=== PATIENT | male | born 1940 | race Caucasian/White ===

== ENCOUNTER → 2016-10-24 | Outpatient (CLI) | payer MEDICARE ==
[~2016-10-24] MED LIST: ASPI-875 PO; CARV12.5 PO; CLOP75TA28 PO; OMEG1CAP51 PO; PIOG30TA25 PO; SIMV40TA2 PO; SIMV80TA3 PO
--- NOTE | 2016-10-24 20:13 | Diagnostic Imaging Report ---
INDICATION: Peripheral vascular disease. FINDINGS: Bilateral ankle-brachial indices are normal. On the right side, the ankle-brachial index in the proximal thigh is 1.17, in the distal thigh is 1.21, in the proximal calf 1.19, and in the distal calf 1.16. On the left side, the ankle-brachial index in the proximal thigh is 1.18, in the distal thigh is 1.28. Proximal calf is 1.07 and the distal calf is 1.02. IMPRESSION: There are normal ankle-brachial indices bilaterally. Dictated by: Dictated on workstation # [id number]
--- NOTE | 2016-10-26 09:00 | ECHOCARDIOGRAPHY REPORT ---
PROCEDURE PHYSICIAN: ZHEN JONES DATE OF PROCEDURE: 10/24/2016 TWO DIMENSIONAL ECHOCARDIOGRAM REPORT PRIMARY PHYSICIAN: Dr. Vargas OTHER PHYSICIAN: Dr. Jones REFERRING PHYSICIAN: ORDERING PHYSICIAN: Nidhi Powell APRN INDICATION FOR THE PROCEDURE: 1. Coronary artery disease. 2. Carotid arterial disease. 3. Diabetes. MEASUREMENTS DERIVED VALUES LV DIAMETER (LAX) NORMALS NORMALS Diastolic 5.5 (3.6-5.2) Eject. Fract. (60%+/-6%) Systolic (2.3-3.9) Diastolic Vol. % Shortening (0.22-0.42) Systolic Vol. Aortic Root 3.5 IVS THICKNESS Diastolic 0.9 (0.6-1.1) LVPW THICKNESS Diastolic 1.1 (0.6-1.1) LA DIAMETER Systolic 3.6 (2.1-3.7) DESCRIPTION: Two-dimensional echocardiography shows normal global left ventricular systolic function with normal regional wall motion. Aortic, mitral and tricuspid valve leaflets show good leaflet excursion. There is no significant pericardial effusion. There is mild aortic valve sclerosis. Aortic valve is trileaflet. Doppler imaging does not indicate any significant valvular regurgitation or stenosis. Inferior vena cava appears mildly dilated but does exhibit inspiratory collapse. CONCLUSIONS: 1. Normal global left ventricular systolic function with an ejection fraction of approximately 60%. 2. Mild aortic valve sclerosis without evidence of valvular stenosis. 3. No evidence of significant valvular regurgitation. 4. Pulmonary artery systolic pressure is estimated to be within normal limits. 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
== END ==
LOC: RAD 13:25
PROVIDERS: ATTEND Nurse Practitioner Family
DX: I25.10 Atherosclerotic heart disease of native coronary artery without angina pectoris (principal); I65.23 Occlusion and stenosis of bilateral carotid arteries; E78.4 Other hyperlipidemia; E11.9 Type 2 diabetes mellitus without complications
CPT/HCPCS: 93306; 93923

== ENCOUNTER 2018-07-06 10:01 | Emergency (ER) | payer MEDICARE ==
[~2018-07-06] VITALS: Ht 177.8 cm; Wt 77.1 kg
--- OUTSIDE RECORDS SUMMARY | 2018-07-06 10:05 | XMS REPORT ---
Author Author CASSANDRA PHOENIX [facility] Address Unknown Care Team Providers Care Hand Alterations Seamstress Name Role Phone CASSANDRA PHOENIX Unavailable PROBLEMS Unknown Problems ALLERGIES No Known Allergies ENCOUNTERS Encounter Location Date Diagnosis [facility] [id number], [place] [id number] Jan, Dental examination Z01.20 [facility] [id number], [place] [id number] Oct, Dental examination Z01.20 IMMUNIZATIONS No Known Immunizations SOCIAL HISTORY Never Assessed REASON FOR VISIT FILLING PLAN OF CARE Activity Details Follow Up prn Reason:fillings VITAL SIGNS Blood pressure systolic 145 mmHg 2017-02-10 Blood pressure diastolic 84 mmHg 2017-02-10 MEDICATIONS Medication Instructions Dosage Frequency Start Date End Date Duration Status Fish Oil Active Fish Oil Active Carvedilol Active Ocuvite Active Pioglitazone HCl Active Enalapril Maleate Active Simvastatin Active Aspir-Low Active Clopidogrel Bisulfate Active RESULTS No Results PROCEDURES Procedure Date Ordered Result Body Site RESIN COMPOS - 3 SURFACES ANTERIOR February 10, 2017 INSTRUCTIONS MEDICATIONS ADMINISTERED No Known Medications MEDICAL (GENERAL) HISTORY Type Description Date Medical History Low blood pressure Medical History Heart attack 2006 Medical History Diabetes II Medical History Blood thinners Medical History arthritis Surgical History hernia x 3
--- OUTSIDE RECORDS SUMMARY | 2018-07-06 10:05 | XMS REPORT | Continuity of Care Document ---
Author Author [facility] Organization [facility] Address Unknown Phone Unavailable Allergies Active Description Code Type Severity Reaction Onset Reported/Identified Relationship to Patient Clinical Status Yes No Known Drug Allergies [id number] Drug Allergy Unknown N/A 05/23/2013 Medications There is no data. Problems Date Dx Coded Attending Type Code Diagnosis Diagnosed By 01/24/2014 STALIN JIMENEZ MD Ot 250.00 DIAB GALO WO COMPL, TYPE II OR UNSPEC TY 01/24/2014 STALIN JIMENEZ MD R Ot 300.00 ANXIETY STATE NOS 01/24/2014 STALIN JIMENEZ MD R Ot 338.29 OTHER CHRONIC PAIN 01/24/2014 STALIN JIMENEZ MD R Ot 401.9 HYPERTENSION NOS 01/24/2014 STALIN JIMENEZ MD R Ot 716.90 ARTHROPATHY NOS-UNSPEC 01/24/2014 STALIN JIMENEZ MD R Ot 724.5 BACKACHE NOS 01/24/2014 STALIN JIMENEZ MD R Ot 780.4 DIZZINESS AND GIDDINESS 01/24/2014 STALIN JIMENEZ MD R Ot 780.79 OTH MALAISE FATIGUE 01/24/2014 STALIN JIMENEZ MD R Ot 784.59 OTHER SPEECH DISTURBANCE 01/24/2014 STALIN JIMENEZ MD Ot 969.4 POIS-BENZODIAZEPINE ALCAZAR 01/24/2014 STALIN JIMENEZ MD R Ot E853.2 ACC POISN-BENZDIAZ TRANQ 01/24/2014 STALIN JIMENEZ MD Ot V03.82 PROPHYLACTIC VACC AGAINST STREPTOCOCCUS 10/24/2016 EFRAIN HODGE VISUAL BASIC DEVELOPER Ot 414.01 CORONARY ATHEROSCLEROSIS OF [place] CORON 10/24/2016 EFRAIN HODGEP Ot V45.81 AORTOCORONARY BYPASS 10/24/2016 EFRAIN HODGE VISUAL BASIC DEVELOPER Ot 414.00 CORON ATHEROSCLER NOS TYPE VESSEL, NATIV 10/24/2016 EFRAIN HODGE VISUAL BASIC DEVELOPER Ot V45.81 AORTOCORONARY BYPASS 10/25/2016 AYESHA, EFRAIN L VISUAL BASIC DEVELOPER Ot I25.10 ATHSCL HEART DISEASE OF [place] CORONARY 10/25/2016 BAIMA, EFRAIN L VISUAL BASIC DEVELOPER Ot E11.9 TYPE 2 DIABETES MELLITUS WITHOUT COMPLIC 10/25/2016 BAIMA, EFRAIN L VISUAL BASIC DEVELOPER Ot E78.4 OTHER HYPERLIPIDEMIA 10/25/2016 BAIMA, EFRAIN L VISUAL BASIC DEVELOPER Ot I25.10 ATHSCL HEART DISEASE OF [place] CORONARY 10/25/2016 BAIMA, EFRAIN L VISUAL BASIC DEVELOPER Ot I65.23 OCCLUSION AND STENOSIS OF [place] 11/15/2016 BAIMA, EFRAIN L VISUAL BASIC DEVELOPER Ot E11.9 TYPE 2 DIABETES MELLITUS WITHOUT COMPLIC 11/15/2016 BAIMA, EFRAIN L VISUAL BASIC DEVELOPER Ot E78.4 OTHER HYPERLIPIDEMIA 11/15/2016 BAIMA, EFRAIN L VISUAL BASIC DEVELOPER Ot I25.10 ATHSCL HEART DISEASE OF [place] CORONARY 11/15/2016 BAIMA, EFRAIN L VISUAL BASIC DEVELOPER Ot I65.23 OCCLUSION AND STENOSIS OF [place] Procedures There is no data. Results There is no data. Encounters ACCT No. Visit Date/Time Discharge Status Pt. Type Provider Facility Loc./Unit Complaint [id number] 10/24/2016 13:25:00 10/24/2016 23:59:59 CLS Outpatient BAIMA, EFRAIN L VISUAL BASIC DEVELOPER [facility] RAD CAD,CAROTID ARTERIAL DISEASE,HYPERLIPIDEMIA [id number] 01/23/2014 21:10:00 01/24/2014 12:15:00 DIS Inpatient BARBARA YANG, STALIN Samuels [facility] ICU TIA, POSSIBLE POSTERIOR CIRCULATION TIA [id number] 05/23/2013 07:52:00 05/23/2013 23:59:59 CLS Outpatient BAIMA, EFRAIN L VISUAL BASIC DEVELOPER [facility] RAD CAD,STATUS POST CABG [id number] 05/22/2013 13:10:00 05/22/2013 23:59:59 CLS Outpatient BAIMA, EFRAIN L VISUAL BASIC DEVELOPER [facility] CARD CAD, STATUS POST CABG [id number] 07/06/2018 10:02:00 ACT Emergency SAE YANG, JAMESON Chavez [facility] ER LEFT LEG NUMB
[2018-07-06] MEDS ORDERED: NS IV 1000 ML 1,000 ML IV ONE (12:50)
--- NOTE | 2018-07-06 13:07 | ED Neurological Problem ---
General Chief Complaint: Lower Extremity Stated Complaint: LEFT LEG NUMB Nursing Triage Note: pt is ambulatory to the room without difficulty. no distress is seen on arrival. loc is [facility] for the pt. the pt is c/o his left lower leg numbness. and his right hand is also numb. Nursing Sepsis Screen: No Definite Risk Source: patient, family (daughter) Exam Limitations: no limitations History of Present Illness Date Seen by Provider: Jul 06, 2018 Time Seen by Provider: 12:55 Initial Comments 77 yo male patient presents to the ED with c/o LLE and rt hand numbness/ tingling. LLE symptoms started 1 wk ago and rt hand started yesterday. Patient does report a similar history, but states symptoms usually last for several minutes and resolved. He reports it feels like the right hand, left calf, and left foot are asleep. Patient denies any falls, trauma, headache, dizziness, slurred speech, changes in vision, shortness of air, chest pain, neck pain, or back pain. Reports blood sugars range between 120-140's. He was recently started on metformin 500 mg once daily. Per patient's EMR, patient had a history of TIAs. Daughter states this was found to not be related to TIAs , but was actually a medication error at the pharmacy. Daughter states patient was accidentally given a high-dose narcotic instead of the medication he was supposed to be on (per daughter patient was opioid nohemy which resulted in him being confused with slurred speech and disoriented). Patient reports having his carotids checked at the [facility] approximately one week ago. Timing/Duration: constant Severity: mild Associated Symptoms: No confusion, No fatigue, No fever/chills, No insomnia, No loss of consciousness, No muscle spasms, No nausea/vomiting; numbness in legs /feet (Left calf and left lateral foot); No ringing in ears, No seizures, No sleepy, No slurred speech; tingling in legs/feet (Left calf and left lateral foot); No trouble walking, No vision changes, No weakness Allergies and Home Medications Allergies Coded Allergies: No Known Drug Allergies (Unverified , 05/23/13) Home Medications Aspirin 81 Mg Tablet., 81 MG PO DAILY, (Reported) Carvedilol 12.5 Mg Tablet, 12.5 MG PO BID, (Reported) Clopidogrel Bisulfate 75 Mg Tablet, 75 MG PO EVERY OTHER DAY, (Reported) Thorndike-3 Fatty Acids/Fish Oil 1 Each Capsule, 1,000 MG PO DAILY @ 1200, (Reported ) Pioglitazone Hcl 30 Mg Tablet, 30 MG PO DAILY, (Reported) Simvastatin 80 Mg Tablet, 80 MG PO HS, (Reported) Patient Home Medication List Home Medication List Reviewed: Yes Review of Systems Review of Systems Constitutional: No chills, No diaphoresis, No dizziness, No fever, No malaise, No weakness Eyes: Denies Blindness, Denies Blurred Vision, Denies Decreased Acuity, Denies Pain, Denies Photophobia, Denies Vision Changes; Glasses Ears, Nose, Mouth, Throat: no symptoms reported Respiratory: No cough, No dyspnea on exertion, No orthopnea, No phlegm, No short of breath Cardiovascular: No chest pain, No edema, No palpitations, No syncope Gastrointestinal: No abdominal pain, No constipation, No diarrhea, No nausea, No vomiting Genitourinary: no symptoms reported Musculoskeletal: No back pain; joint pain (chronic bilateral knee pain); No neck pain Skin: No change in color, No lesions, No rash Psychiatric/Neurological: See HPI; Denies Cognitive Dysfunction, Denies Headache; Numbness; Denies Petit Mal Seizures; Tingling; Denies Tonic Clonic Seizures, Denies Unable to Move Lower Ext, Denies Unable to Move Upper Ext, Denies Weakness Endocrine: No Symptoms Reported All Other Systems Reviewed Negative Unless Noted: Yes (Negative excepted noted.) Past Xaquyfn-Axaysg-Xcavqo Hx Past Med/Social Hx: Reviewed and Corrections made Patient Social History Alcohol Use: Denies Use Recreational Drug Use: No Smoking Status: Former Smoker 2nd Hand Smoke Exposure: No Recent Foreign Travel: No Contact w/Someone Who Travel: No Recent Infectious Disease Expo: No Recent Hopitalizations: No Physical Abuse: No Sexual Abuse: No Mistreated: No Fear: No Immunizations Up To Date Tetanus Booster (TDap): Less than 5yrs Past Medical History Surgeries: Yes CABG Respiratory: No Cardiac: Yes Coronary Artery Disease, High Cholesterol, Hypertension Neurological: No Reproductive Disorders: No Sexually Transmitted Disease: No HIV/AIDS: No Genitourinary: No Gastrointestinal: No Musculoskeletal: Yes (chronic bilateral knee pain) Arthritis, Chronic Back Pain Diabetes, Non-Insulin dep (type II) Cataract Loss of Vision: Denies Hearing Impairment: Denies Cancer: Yes Skin Psychosocial: No Psoriasis Adverse Reaction/Blood Tranf: No Family Medical History Reviewed Nursing Family Hx Cataract 19 FATHER, Onset:Unknown Family history: Thyroid disorder 19 MOTHER, Onset:Unknown No Pertinent Family Hx Physical Exam Vital Signs Vital Signs - First Documented 07/06/18 10:29 Temp 98.2 Pulse 86 Resp 18 B/P (MAP) 117/73 (88) Pulse Ox 97 Capillary Refill : Less Than 3 Seconds Height, Weight, BMI Height: 5'10.00" Weight: 170lbs. 1.0oz. [id number]; BMI Method:Estimated General Appearance: WD/WN, no apparent distress HEENT: PERRL/EOMI, normal ENT inspection, TMs normal, pharynx normal Neck: non-tender, full range of motion, supple, normal inspection; No carotid bruit Respiratory: lungs clear, normal breath sounds, no respiratory distress, no accessory muscle use Cardiovascular: normal peripheral pulses, regular rate, rhythm, no edema, no gallop, no JVD, no murmur Peripheral Pulses: 2+ Dorsalis Pedis (R), 2+ Left Dors-Pedis (L), 2+ Radial Pulses (R), 2+ Radial Pulses (L) Gastrointestinal: normal bowel sounds, non tender, soft, no organomegaly, no pulsatile mass Back: normal inspection, no vertebral tenderness; No decreased range of motion , No muscle spasm Extremities: normal range of motion, non-tender, normal inspection, no pedal edema, no calf tenderness, normal capillary refill Neurologic/Psychiatric: charging car operator II-XII nml as tested, no motor/sensory deficits, alert, normal mood/affect, oriented x 3 Crainal Nerves: normal hearing, normal speech, PERRL Coordination/Gait: normal finger to nose, normal gait, negative Romberg's sign Motor/Sensory: no motor deficit, no sensory deficit, no pronator drift Skin: normal color, warm/dry Stroke Stroke Thrombolytic Exclusion Age 18 or Over: Yes History of CVA: No Severe Hypertension: No GI or Bleed: No Subarachnoid Hemorrhage: No Intracranial Neoplasm/Aneurysm: No Puncture of Non-Compressible V: No Recent CPR: No Diabetic Hemorrhagic Retinopat: No Organ Biopsy: No Recent Obstetric Delivery: No Significant Hepatic Dysfunctio: No NIH Stoke Scale >22: No Improving Symptoms: No Progress/Results/Core Measures Results/Orders Lab Results Laboratory Tests Test 07/06/18 13:00 Range/Units White Blood Count 9.3 4.3-11.0 10^3/uL Red Blood Count 3.92 L 4.35-5.85 10^6/uL Hemoglobin 11.3 L 13.3-17.7 G/DL Hematocrit 34 L 40-54 % Mean Corpuscular Volume 87 80-99 FL Mean Corpuscular Hemoglobin 29 25-34 PG Mean Corpuscular Hemoglobin Concent 33 32-36 G/DL Red Cell Distribution Width 14.1 10.0-14.5 % Platelet Count 173 130-400 10^3/uL Mean Platelet Volume 9.4 7.4-10.4 FL Neutrophils (%) (Auto) 74 42-75 % Lymphocytes (%) (Auto) 9 L 12-44 % Monocytes (%) (Auto) 17 H 0-12 % Eosinophils (%) (Auto) 0 0-10 % Basophils (%) (Auto) 0 0-10 % Neutrophils # (Auto) 6.9 1.8-7.8 X 10^3 Lymphocytes # (Auto) 0.9 L 1.0-4.0 X 10^3 Monocytes # (Auto) 1.5 H 0.0-1.0 X 10^3 Eosinophils # (Auto) 0.0 0.0-0.3 10^3/uL Basophils # (Auto) 0.0 0.0-0.1 10^3/uL Sodium Level 134 L 135-145 MMOL/L Potassium Level 3.6 3.6-5.0 MMOL/L Chloride Level 104 98-107 MMOL/L Carbon Dioxide Level 22 21-32 MMOL/L Anion Gap 8 5-14 MMOL/L Blood Urea Nitrogen 24 H 7-18 MG/DL Creatinine 0.74 0.60-1.30 MG/DL Estimat Glomerular Filtration Rate > 60 BUN/Creatinine Ratio 32 Glucose Level 160 H 70-105 MG/DL Calcium Level 8.9 8.5-10.1 MG/DL Corrected Calcium 9.3 8.5-10.1 MG/DL Total Bilirubin 0.5 0.1-1.0 MG/DL Aspartate Amino Transf (AST/SGOT) 16 5-34 U/L Alanine Aminotransferase (ALT/SGPT) 13 0-55 U/L Alkaline Phosphatase 91 40-136 U/L Total Protein 6.6 6.4-8.2 GM/DL Albumin 3.5 3.2-4.5 GM/DL My Orders Orders - CHAI PINTO Ct Head Wo (07/06/18 12:43) Cbc With Automated Diff (07/06/18 12:43) Comprehensive Metabolic Panel (07/06/18 12:43) Saline Lock/Iv-Start (07/06/18 12:43) Ns Iv 1000 Ml (Sodium Chloride 0.9%) (07/06/18 12:50) Medications Given in ED Vital Signs/I&O 07/06/18 07/06/18 10:29 13:50 Temp 98.2 98.6 Pulse 86 77 Resp 18 16 B/P (MAP) 117/73 (88) 120/75 (90) Pulse Ox 97 97 Blood Pressure Mean: 88 Diagnostic Imaging Diagonstic Imaging: CT Plain Films/CT/US/NM/MRI: head Comments CT HEAD WO PROCEDURE: CT head without contrast. TECHNIQUE: Multiple contiguous axial images were obtained through the brain without the use of intravenous contrast. INDICATION: Left leg numbness and right hand numbness. Comparison is made with prior head CT from 01/23/2014. The ventricles and sulci are within normal limits. No sulcal effacement, midline shift or hemorrhage is detected. The cisterns are patent. The visualized paranasal sinuses are clear. IMPRESSION : No acute intracranial process is detected. Dictated by: Dictated on workstation # [id number] Reviewed: Reviewed by Me (radiology report reviewed by me) Departure Communication (Admissions) Laboratory and diagnostic findings discussed with the patient and family. Plan for discharge to home with follow-up as an outpatient Monday and Dr. Vargas's office. He is to return immediately to the emergency department for worsened symptoms or any other concerns. Impression Primary Impression: Paresthesia of left lower extremity Additional Impressions: Paresthesias in right hand Diabetes mellitus type 2, uncontrolled Qualified Codes: E11.65 - Type 2 diabetes mellitus with hyperglycemia Disposition: HOME, SELF-CARE Condition: Improved Departure-Patient Inst. Decision time for Depature: 13:43 Referrals: STALIN VARGAS MD (PCP/Family) Primary Care Physician Patient Instructions: Diabetes Type 2 (DC), Diabetic Neuropathy (DC), Paresthesias (DC) Add. Discharge Instructions: All discharge instructions reviewed with patient and/or family. Voiced understanding. Continue usual home medications. Continue your usual diet as instructed by Dr. Vargas. Follow-up with Dr. Vargas Monday for recheck and possible need for further evaluation. He may order radiographs, CT scans, or an MRI to further evaluate your symptoms. Return immediately to the emergency department for worsened numbness/tingling, headache, dizziness, changes in vision, slurred speech, neck pain, back pain, shortness of air, chest pain, bowel incontinence, bladder incontinence, or any other concerns. CHAI PINTO Jul 06, 2018 13:07
[2018-07-06 13:10] LABS: BASOPHILS % (AUTO) 0 % (0-10); EOSINOPHILS % (AUTO) 0 % (0-10); HEMATOCRIT 34 % (40-54); HEMOGLOBIN 11.3 G/DL (13.3-17.7); LYMPHOCYTES # (AUTO) 0.9 X 10^3 (1.0-4.0); LYMPHOCYTES % (AUTO) 9 % (12-44); MEAN CORPUSCULAR HEMOGLOBIN 29 PG (25-34); MEAN CORPUSCULAR HGB CONC 33 G/DL (32-36); MEAN CORPUSCULAR VOLUME 87 FL (80-99); MEAN PLATELET VOLUME 9.4 FL (7.4-10.4); MONOCYTES # (AUTO) 1.5 X 10^3 (0.0-1.0); MONOCYTES % (AUTO) 17 % (0-12); NEUTROPHILS # (AUTO) 6.9 X 10^3 (1.8-7.8); NEUTROPHILS % (AUTO) 74 % (42-75); PLATELET COUNT 173 10^3/uL (130-400); RED BLOOD COUNT 3.92 10^6/uL (4.35-5.85); RED CELL DISTRIBUTION WIDTH 14.1 % (10.0-14.5); WHITE BLOOD COUNT 9.3 10^3/uL (4.3-11.0)
--- NOTE | 2018-07-06 13:36 | Diagnostic Imaging Report ---
PROCEDURE: CT head without contrast. TECHNIQUE: Multiple contiguous axial images were obtained through the brain without the use of intravenous contrast. INDICATION: Left leg numbness and right hand numbness. Comparison is made with prior head CT from 01/23/2014. The ventricles and sulci are within normal limits. No sulcal effacement, midline shift or hemorrhage is detected. The cisterns are patent. The visualized paranasal sinuses are clear. IMPRESSION: No acute intracranial process is detected. Dictated by: Dictated on workstation # [id number]
[2018-07-06 13:39] LABS: ALANINE AMINOTRANSFERASE 13 U/L (0-55); ALBUMIN 3.5 GM/DL (3.2-4.5); ALKALINE PHOSPHATASE 91 U/L (40-136); BILIRUBIN,TOTAL 0.5 MG/DL (0.1-1.0); BUN/CREATININE RATIO 32; CALCIUM 8.9 MG/DL (8.5-10.1); CARBON DIOXIDE 22 MMOL/L (21-32); CHLORIDE 104 MMOL/L (98-107); CREATININE SERUM 0.74 MG/DL (0.60-1.30); GFR ESTIMATED > 60; GLUCOSE 160 MG/DL (70-105); POTASSIUM 3.6 MMOL/L (3.6-5.0); SODIUM 134 MMOL/L (135-145); TOTAL PROTEIN 6.6 GM/DL (6.4-8.2)
[2018-07-06 13:50] VITALS: BP 120/75
== END 2018-07-06 14:01 | disposition home or self-care (01) ==
LOC: EDUNIT# 10:01 → ER 10:02
DX: R20.2 Paresthesia of skin (principal); E11.9 Type 2 diabetes mellitus without complications; I25.10 Atherosclerotic heart disease of native coronary artery without angina pectoris; E78.00 Pure hypercholesterolemia, unspecified; I10 Essential (primary) hypertension; Z85.828 Personal history of other malignant neoplasm of skin; Z79.82 Long term (current) use of aspirin; Z79.02 Long term (current) use of antithrombotics/antiplatelets; Z79.84 Long term (current) use of oral hypoglycemic drugs; Z86.73 Personal history of transient ischemic attack (TIA), and cerebral infarction without residual deficits; Z87.891 Personal history of nicotine dependence; Z95.1 Presence of aortocoronary bypass graft
CPT/HCPCS: 36415; 70450; 80053; 85025

== ENCOUNTER → 2019-02-04 | Outpatient (CLI) | payer MEDICARE ==
[2019-02-04 09:45] LABS: BASOPHILS % (AUTO) 0 % (0-10); EOSINOPHILS # (AUTO) 0.3 10^3/uL (0.0-0.3); EOSINOPHILS % (AUTO) 2 % (0-10); HEMATOCRIT 39 % (40-54); HEMOGLOBIN 12.5 G/DL (13.3-17.7); LYMPHOCYTES # (AUTO) 0.9 X 10^3 (1.0-4.0); LYMPHOCYTES % (AUTO) 9 % (12-44); MEAN CORPUSCULAR HEMOGLOBIN 28 PG (25-34); MEAN CORPUSCULAR HGB CONC 32 G/DL (32-36); MEAN CORPUSCULAR VOLUME 89 FL (80-99); MEAN PLATELET VOLUME 8.9 FL (7.4-10.4); MONOCYTES # (AUTO) 0.9 X 10^3 (0.0-1.0); MONOCYTES % (AUTO) 8 % (0-12); NEUTROPHILS # (AUTO) 8.7 X 10^3 (1.8-7.8); NEUTROPHILS % (AUTO) 81 % (42-75); PLATELET COUNT 430 10^3/uL (130-400); RED CELL DISTRIBUTION WIDTH 14.5 % (10.0-14.5); WHITE BLOOD COUNT 10.8 10^3/uL (4.3-11.0)
[2019-02-04 10:01] LABS: ALANINE AMINOTRANSFERASE 36 U/L (0-55); ALBUMIN 3.2 GM/DL (3.2-4.5); ALKALINE PHOSPHATASE 148 U/L (40-136); BILIRUBIN,TOTAL 0.4 MG/DL (0.1-1.0); BUN/CREATININE RATIO 14; CALCIUM 8.5 MG/DL (8.5-10.1); CARBON DIOXIDE 25 MMOL/L (21-32); CHLORIDE 104 MMOL/L (98-107); CREATININE SERUM 0.78 MG/DL (0.60-1.30); GFR ESTIMATED > 60; GLUCOSE 317 MG/DL (70-105); SODIUM 136 MMOL/L (135-145); TOTAL PROTEIN 6.6 GM/DL (6.4-8.2)
== END ==
LOC: LAB 09:24
PROVIDERS: ATTEND Family Medicine
DX: E11.9 Type 2 diabetes mellitus without complications (principal)
CPT/HCPCS: 36415; 80053; 83036; 84443; 85025

== ENCOUNTER → 2019-02-05 | Outpatient (CLI) | payer MEDICARE ==
--- NOTE | 2019-02-05 10:08 | Diagnostic Imaging Report ---
PROCEDURE: CT abdomen and pelvis with and without contrast. TECHNIQUE: Precontrast acquisitions were acquired through the abdomen and pelvis. Multiple contiguous axial images were obtained through the abdomen and pelvis after the administration of intravenous contrast. Auto Exposure Controls were utilized during the CT exam to meet ALARA standards for radiation dose reduction. INDICATION: Unexplained weight loss. COMPARISON: None. FINDINGS: Included portions of the lung bases show punctate benign calcified granuloma within the left inferior costophrenic angle measuring approximately 4 mm (image 12, series 4). CT abdomen: There is colonic diverticulosis but no CT evidence of acute diverticulitis. Normal appendix is identified. Small bowel loops are nondistended. Evaluation of the kidneys demonstrates focal wedge-shaped cortical hypodensity within the superior pole on the right. It measures 1.5 x 1.5 cm. Remainder of the kidneys have an unremarkable CT appearance. No renal or ureteral calculi are seen on either side. Additionally, there is no hydroureteronephrosis or other evidence of obstruction. The spleen, pancreas, adrenal glands, and liver have a normal CT appearance. Multiple mildly prominent retroperitoneal lymph nodes are noted within the upper abdomen. Largest of these measures approximately 2.8 x 1.6 cm and is identified posterior to the IVC just inferior to the right renal artery (image 34, series 4). Few scattered prominent-appearing, yet subcentimeter mesenteric lymph nodes are also noted. There is moderate diffuse calcified aortic and arterial atherosclerosis. Osseous structures show age-related degenerative changes. No acute bony abnormalities are seen. CT pelvis: Urinary bladder is grossly unremarkable. There is no loculated fluid collection, free fluid, nor free air within the pelvis. No abnormal pelvic adenopathy is seen. Osseous structures show no acute abnormalities. IMPRESSION: 1. Multiple prominent paraaortic retroperitoneal adenopathy within the upper abdomen. Findings are concerning for underlying lymphoproliferative or lymphoinvasive neoplastic process. The dominant lymph node referenced above would be difficult to biopsy given its close proximity to vascular structures. May want to consider correlation with CT PET to ensure increased activity. 2. 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 Four-month followup is advised. 3. Colonic diverticulosis, but no CT evidence of acute diverticulitis. 4. Moderate diffuse calcified aortic and arterial atherosclerosis. Dictated by: Dictated on workstation # [id number]
== END ==
LOC: RAD 07:16
PROVIDERS: ATTEND Family Medicine
DX: K57.30 Diverticulosis of large intestine without perforation or abscess without bleeding (principal); I70.0 Atherosclerosis of aorta; I70.90 Unspecified atherosclerosis; N28.89 Other specified disorders of kidney and ureter; R59.0 Localized enlarged lymph nodes; R63.4 Abnormal weight loss
CPT/HCPCS: 74178

== ENCOUNTER → 2019-02-13 | Outpatient (CLI) | payer MEDICARE ==
[2019-02-13 14:09] LABS: ABSOLUTE RETIC # 46 10e9/L (24-90); BASOPHILS % (AUTO) 0 % (0-10); EOSINOPHILS # (AUTO) 0.1 10^3/uL (0.0-0.3); EOSINOPHILS % (AUTO) 2 % (0-10); HEMATOCRIT 40 % (40-54); HEMOGLOBIN 13.2 G/DL (13.3-17.7); LYMPHOCYTES # (AUTO) 0.9 X 10^3 (1.0-4.0); LYMPHOCYTES % (AUTO) 14 % (12-44); MEAN CORPUSCULAR HEMOGLOBIN 29 PG (25-34); MEAN CORPUSCULAR HGB CONC 33 G/DL (32-36); MEAN CORPUSCULAR VOLUME 88 FL (80-99); MEAN PLATELET VOLUME 9.5 FL (7.4-10.4); MONOCYTES # (AUTO) 0.6 X 10^3 (0.0-1.0); MONOCYTES % (AUTO) 9 % (0-12); NEUTROPHILS # (AUTO) 4.6 X 10^3 (1.8-7.8); NEUTROPHILS % (AUTO) 74 % (42-75); PLATELET COUNT 271 10^3/uL (130-400); RED CELL DISTRIBUTION WIDTH 14.5 % (10.0-14.5); RETICULOCYTE % 1.01 % (0.50-2.40); WHITE BLOOD COUNT 6.3 10^3/uL (4.3-11.0)
[2019-02-13 14:10] LABS: BAND NEUTROPHILS 0 %; BASOPHILS % (MANUAL) 0 %; EOSINOPHILS % (MANUAL) 3 %; LYMPHOCYTES % (MANUAL) 11 %; MONOCYTES % (MANUAL) 4 %; NEUTROPHILS % (MANUAL) 82 %
[2019-02-13 14:28] LABS: ALANINE AMINOTRANSFERASE 27 U/L (0-55); ALBUMIN 3.6 GM/DL (3.2-4.5); ALKALINE PHOSPHATASE 151 U/L (40-136); BILIRUBIN,TOTAL 0.4 MG/DL (0.1-1.0); BUN/CREATININE RATIO 16; CALCIUM 8.9 MG/DL (8.5-10.1); CARBON DIOXIDE 26 MMOL/L (21-32); CHLORIDE 104 MMOL/L (98-107); GFR ESTIMATED > 60; GLUCOSE 306 MG/DL (70-105); POTASSIUM 4.4 MMOL/L (3.6-5.0); SODIUM 137 MMOL/L (135-145); TOTAL PROTEIN 7.1 GM/DL (6.4-8.2)
== END ==
LOC: LAB 09:30
PROVIDERS: ATTEND Internal Medicine Hematology & Oncology
DX: D47.9 Neoplasm of uncertain behavior of lymphoid, hematopoietic and related tissue, unspecified (principal)
CPT/HCPCS: 80053; 85007; 85027; 85045

== ENCOUNTER → 2019-03-05 | Outpatient (CLI) | payer MEDICARE ==
--- NOTE | 2019-03-05 13:24 | Diagnostic Imaging Report ---
INDICATION: Lymphoproliferative disease. TECHNIQUE: Serum blood glucose level at the time of injection is 193 mg/dL. The patient was administered 12.0 mCi F-18 FDG intravenously in the right forearm and PET imaging was performed from the top of the skull to mid thighs. Noncontrast CT was also performed for attenuation correction and anatomic correlation. COMPARISON: No prior PET studies are available for comparison. Comparison is made with recent CT of the abdomen and pelvis from 02/05/2019. FINDINGS: There is symmetric activity throughout the brain. There is a hypermetabolic nodule in the region of the deep lobe of the left parotid gland demonstrating SUVmax of approximately 5.5. This nodule measures approximately 14 mm. No other regions of hypermetabolism in the neck are identified. Conventional CT chest does show some prominent lymph nodes in the mediastinum but no abnormal hypermetabolism is seen. No hypermetabolic lesions in the marielena are identified. No abnormal hypermetabolism in the pulmonary parenchyma is seen. There does appear to be some scarring in the posterior aspect of the right lung apex. Imaging through the abdomen and pelvis demonstrates physiologic activity in the GI and tracts. No suspicious hypermetabolism is seen. Specifically, no abnormal uptake is identified in the enlarged central retroperitoneal lymph nodes described on recent CT. IMPRESSION: 1. Hypermetabolic nodule in deep lobe of the left parotid gland. Dedicated CT neck with contrast would be useful for further characterization. 2. There are prominent lymph nodes in the mediastinum as well as the central retroperitoneum of the abdomen; however, these do not demonstrate hypermetabolism on PET scan. No other significant abnormality is seen. Dictated by: Dictated on workstation # [id number]
== END ==
LOC: RAD 08:54
PROVIDERS: ATTEND Internal Medicine Hematology & Oncology
DX: K11.8 Other diseases of salivary glands (principal); D47.9 Neoplasm of uncertain behavior of lymphoid, hematopoietic and related tissue, unspecified

== ENCOUNTER → 2019-03-08 | Outpatient (CLI) | payer MEDICARE ==
[~2019-03-08] MED LIST changes: +CATHETER FLUSH 10 ML SYR IV PRN; +HOLD METFORMIN - RECEIVED CONTRAST 20 ML VIAL IV SCH; +IOHEXOL 350 MG/ML 100 ML (OMNIPAQUE 350) VIAL IV ONE; +NS 100 ML (IVPB) BAG IV ONE
--- NOTE | 2019-03-08 17:19 | Diagnostic Imaging Report ---
PROCEDURE: CT neck soft tissue with contrast. TECHNIQUE: Multiple contiguous axial images were obtained through the neck after the administration of contrast. Auto Exposure Controls were utilized during the CT exam to meet ALARA standards for radiation dose reduction. INDICATION: Lymphoproliferative disease. Questioned nodule of the neck on recent PET imaging. CORRELATION STUDY: PET/CT of 03/05/2019. FINDINGS: There is a slightly hyperdense nodule noted either just within or adjacent to and abutting the inferior deep margins of the left parotid gland. This measures 15 x 9 x 26 mm and corresponds to the recently identified hypermetabolic nodule on PET imaging. No additional abnormal enlarged lymph nodes or masses suggested in the soft tissues of the neck. There is mild metallic artifact from dental lutheran. The nasopharynx and oropharynx are not completely imaged on this study. The vallecula and epiglottis appear unremarkable. Vocal cords and subglottic airway appearing unremarkable. Thyroid gland has slightly low nodules. No definitive concerning mass. Submandibular glands are unremarkable. Visualized lung apices demonstrate emphysematous changes with prominent interstitial markings. Enlarged right paratracheal lymph node measures 15 x 13 mm. Mildly advanced cervical spine degenerative changes are present. IMPRESSION: 1. Abnormal mass either just adjacent to or perhaps within the deep inferior margins of the left parotid gland. This corresponds to the hypermetabolic mass at PET imaging. This finding is nonspecific but does favor probable enlarged, hypermetabolic lymph node. 2. There is also presence of enlarged of superior mediastinal lymph nodes. Dictated by: Dictated on workstation # [id number]
== END ==
LOC: RAD 14:33
PROVIDERS: ATTEND Internal Medicine Hematology & Oncology
DX: D47.9 Neoplasm of uncertain behavior of lymphoid, hematopoietic and related tissue, unspecified (principal); R22.1 Localized swelling, mass and lump, neck; R94.8 Abnormal results of function studies of other organs and systems
CPT/HCPCS: 70491

== ENCOUNTER 2019-03-20 15:52 | Outpatient (RCR) | payer MEDICARE ==
[~2019-03-20 15:52] MED LIST changes: -CATHETER FLUSH 10 ML SYR IV PRN; -HOLD METFORMIN - RECEIVED CONTRAST 20 ML VIAL IV SCH; -IOHEXOL 350 MG/ML 100 ML (OMNIPAQUE 350) VIAL IV ONE; -NS 100 ML (IVPB) BAG IV ONE
== END 2019-05-14 | disposition home or self-care (01) ==
LOC: ONC 15:52
PROVIDERS: ATTEND Internal Medicine Hematology & Oncology
DX: R59.0 Localized enlarged lymph nodes (principal); K11.8 Other diseases of salivary glands; N28.9 Disorder of kidney and ureter, unspecified; E11.9 Type 2 diabetes mellitus without complications; I10 Essential (primary) hypertension; I25.10 Atherosclerotic heart disease of native coronary artery without angina pectoris; F17.290 Nicotine dependence, other tobacco product, uncomplicated; Z95.1 Presence of aortocoronary bypass graft; Z79.82 Long term (current) use of aspirin; Z79.84 Long term (current) use of oral hypoglycemic drugs; Z79.899 Other long term (current) drug therapy
CPT/HCPCS: 80053; 85007; 85027; 85045; 99213; 99214

== ENCOUNTER → 2019-08-12 | Outpatient (CLI) | payer MEDICARE ==
[~2019-08-12] MED LIST changes: +CATHETER FLUSH 10 ML SYR IV PRN; +HOLD METFORMIN - RECEIVED CONTRAST 20 ML VIAL IV SCH; +IOHEXOL 350 MG/ML 100 ML (OMNIPAQUE 350) VIAL IV ONE; +NS 100 ML (IVPB) BAG IV ONE
--- NOTE | 2019-08-12 10:35 | Diagnostic Imaging Report ---
PROCEDURE: CT abdomen with and without contrast. TECHNIQUE: Multiple contiguous axial CT images of the abdomen were obtained prior to and after intravenous administration of iodinated contrast. Auto Exposure Controls were utilized during the CT exam to meet ALARA standards for radiation dose reduction. INDICATION: Abnormal prior imaging, adenopathy. COMPARISON: 03/05/2019 and 02/05/2019. FINDINGS: Median sternotomy. Dependent atelectasis within the right lung base. Stable sub-4 mm calcified granuloma within the left lung base. The liver is unremarkable. Calcified splenic granuloma. Otherwise, the spleen is unremarkable. The adrenal glands are unremarkable. The pancreas is unremarkable. The gallbladder is unremarkable. Right extrarenal pelvis. Previously noted wedge-shaped hypodensity within the superior pole of the right kidney is not seen on this examination and appears to have resolved since the prior exam. The right kidney is otherwise unremarkable. The left kidney is unremarkable. A couple regions of poor corticomedullary differentiation with hypodensity within the superior pole of the left kidney seen on prior examination has resolved since the prior exam. No hydronephrosis. Moderate scattered vascular calcifications without aneurysmal dilatation of the abdominal aorta. Previously noted retroperitoneal adenopathy appears slightly improved since the prior examination. In particular, retrocaval lymph node measures 2.4 x 1.0 cm when previously this measured 2.8 x 1.6 cm. The pancreas is unremarkable. No evidence of bowel obstruction within the [id number]. No free air or free fluid. No acute osseous abnormalities with mild scattered osseous degenerative changes. IMPRESSION: Interval resolution of previously noted hypodensity involving the superior pole of the right kidney. This is associated with improved ill-defined hypodensities within the left kidney. Findings are felt to relate to improved and resolved pyelonephritis. Improved infiltrative malignancy would be an additional consideration. Mildly improved retroperitoneal adenopathy. Additional findings as above. Dictated by: Dictated on workstation # [id number]
== END ==
LOC: RAD 09:09
PROVIDERS: ATTEND Internal Medicine Hematology & Oncology
DX: N28.9 Disorder of kidney and ureter, unspecified (principal); R59.0 Localized enlarged lymph nodes
CPT/HCPCS: 74170

== ENCOUNTER 2019-08-15 13:02 | Outpatient (RCR) | payer MEDICARE ==
[2019-08-12 09:09] LABS: BASOPHILS % (AUTO) 0 % (0-10); EOSINOPHILS # (AUTO) 0.4 10^3/uL (0.0-0.3); EOSINOPHILS % (AUTO) 5 % (0-10); HEMATOCRIT 42 % (40-54); HEMOGLOBIN 14.2 G/DL (13.3-17.7); LYMPHOCYTES # (AUTO) 1.2 X 10^3 (1.0-4.0); LYMPHOCYTES % (AUTO) 18 % (12-44); MEAN CORPUSCULAR HEMOGLOBIN 30 PG (25-34); MEAN CORPUSCULAR HGB CONC 34 G/DL (32-36); MEAN CORPUSCULAR VOLUME 88 FL (80-99); MEAN PLATELET VOLUME 9.8 FL (7.4-10.4); MONOCYTES # (AUTO) 0.7 X 10^3 (0.0-1.0); MONOCYTES % (AUTO) 10 % (0-12); NEUTROPHILS # (AUTO) 4.7 X 10^3 (1.8-7.8); NEUTROPHILS % (AUTO) 67 % (42-75); PLATELET COUNT 177 10^3/uL (130-400); RED CELL DISTRIBUTION WIDTH 13.7 % (10.0-14.5)
[2019-08-12 09:35] LABS: ALANINE AMINOTRANSFERASE 21 U/L (0-55); ALKALINE PHOSPHATASE 102 U/L (40-136); BILIRUBIN,TOTAL 0.7 MG/DL (0.1-1.0); BUN/CREATININE RATIO 16; CALCIUM 8.8 MG/DL (8.5-10.1); CARBON DIOXIDE 25 MMOL/L (21-32); CHLORIDE 104 MMOL/L (98-107); CREATININE SERUM 0.79 MG/DL (0.60-1.30); GFR ESTIMATED > 60; GLUCOSE 222 MG/DL (70-105); POTASSIUM 4.3 MMOL/L (3.6-5.0); SODIUM 136 MMOL/L (135-145); TOTAL PROTEIN 6.8 GM/DL (6.4-8.2)
[~2019-08-15 13:02] MED LIST changes: -CATHETER FLUSH 10 ML SYR IV PRN; -HOLD METFORMIN - RECEIVED CONTRAST 20 ML VIAL IV SCH; -IOHEXOL 350 MG/ML 100 ML (OMNIPAQUE 350) VIAL IV ONE; -NS 100 ML (IVPB) BAG IV ONE
== END 2019-11-10 | disposition home or self-care (01) ==
LOC: ONC 13:02
PROVIDERS: ATTEND Internal Medicine Hematology & Oncology
DX: R59.0 Localized enlarged lymph nodes (principal); K11.8 Other diseases of salivary glands; N28.9 Disorder of kidney and ureter, unspecified; E11.9 Type 2 diabetes mellitus without complications; E78.5 Hyperlipidemia, unspecified; I10 Essential (primary) hypertension; I25.10 Atherosclerotic heart disease of native coronary artery without angina pectoris; I65.29 Occlusion and stenosis of unspecified carotid artery; Z79.84 Long term (current) use of oral hypoglycemic drugs; Z79.899 Other long term (current) drug therapy; Z95.1 Presence of aortocoronary bypass graft; Z79.82 Long term (current) use of aspirin; Z72.0 Tobacco use
CPT/HCPCS: 80053; 83615; 85025; 99213

== ENCOUNTER 2019-11-13 09:02 | Outpatient (RCR) | payer MEDICARE ==
[2019-11-13 09:14] LABS: BASOPHILS % (AUTO) 0 % (0-10); EOSINOPHILS # (AUTO) 0.4 10^3/uL (0.0-0.3); EOSINOPHILS % (AUTO) 7 % (0-10); HEMATOCRIT 45 % (40-54); HEMOGLOBIN 15.2 G/DL (13.3-17.7); LYMPHOCYTES # (AUTO) 1.3 X 10^3 (1.0-4.0); LYMPHOCYTES % (AUTO) 19 % (12-44); MEAN CORPUSCULAR HEMOGLOBIN 30 PG (25-34); MEAN CORPUSCULAR HGB CONC 34 G/DL (32-36); MEAN CORPUSCULAR VOLUME 89 FL (80-99); MEAN PLATELET VOLUME 9.8 FL (7.4-10.4); MONOCYTES # (AUTO) 0.7 X 10^3 (0.0-1.0); MONOCYTES % (AUTO) 11 % (0-12); NEUTROPHILS # (AUTO) 4.2 X 10^3 (1.8-7.8); NEUTROPHILS % (AUTO) 63 % (42-75); PLATELET COUNT 151 10^3/uL (130-400); RED CELL DISTRIBUTION WIDTH 13.7 % (10.0-14.5); WHITE BLOOD COUNT 6.6 10^3/uL (4.3-11.0)
[2019-11-13 09:34] LABS: ALANINE AMINOTRANSFERASE 15 U/L (0-55); ALKALINE PHOSPHATASE 88 U/L (40-136); BILIRUBIN,TOTAL 0.5 MG/DL (0.1-1.0); BUN/CREATININE RATIO 15; CALCIUM 8.7 MG/DL (8.5-10.1); CARBON DIOXIDE 21 MMOL/L (21-32); CHLORIDE 108 MMOL/L (98-107); CREATININE SERUM 0.78 MG/DL (0.60-1.30); GFR ESTIMATED > 60; GLUCOSE 186 MG/DL (70-105); POTASSIUM 4.3 MMOL/L (3.6-5.0); SODIUM 136 MMOL/L (135-145)
== END 2020-02-11 | disposition home or self-care (01) ==
LOC: ONC 09:02
PROVIDERS: ATTEND Internal Medicine Hematology & Oncology
DX: I25.10 Atherosclerotic heart disease of native coronary artery without angina pectoris (principal); R59.0 Localized enlarged lymph nodes; I10 Essential (primary) hypertension
CPT/HCPCS: 80053; 83615; 85025

== ENCOUNTER → 2020-03-03 | Outpatient (CLI) | payer MEDICARE ==
[~2020-03-03] MED LIST changes: +CATHETER FLUSH 10 ML SYR IV PRN; +HOLD METFORMIN - RECEIVED CONTRAST 20 ML VIAL IV SCH; +IOHEXOL 350 MG/ML 100 ML (OMNIPAQUE 350) VIAL IV ONE; +NS 100 ML (IVPB) BAG IV ONE
[2020-03-03 11:45] LABS: BUN/CREATININE RATIO 17; CREATININE SERUM 0.71 MG/DL (0.60-1.30); GFR ESTIMATED > 60
--- NOTE | 2020-03-03 13:26 | Diagnostic Imaging Report ---
PROCEDURE: CT neck soft tissue with contrast. TECHNIQUE: Multiple contiguous axial images were obtained through the neck after the administration of contrast. Auto Exposure Controls were utilized during the CT exam to meet ALARA standards for radiation dose reduction. INDICATION: Follow-up left parotid mass. COMPARISON: 03/08/2019. FINDINGS: Again seen is the nodule in the left parotid gland measuring 1.5 x 0.9 cm and 2.6 cm craniocaudal, stable compared to the prior exam. No new nodules are seen in the bilateral parotid glands. No new masses or fluid collections are seen in the neck. The bilateral submandibular glands and thyroid gland have a normal appearance. The nasopharynx, oropharynx, hypopharynx, and larynx have a normal CT appearance. No evidence of mass or fluid collection is seen in the aerodigestive tract. No prevertebral or retropharyngeal fluid collections. The parapharyngeal fat planes are preserved. No pathologically enlarged lymphadenopathy is seen in the neck. The vascular structures demonstrate no evidence of stenosis on this nondedicated exam. The osseous structures of the cervical spine are unremarkable without acute fracture or dislocation. Degenerative changes are present at the C4-C5 level. The included intracranial contents demonstrate no acute abnormalities. The paranasal sinuses and mastoid air cells are well pneumatized. Centrilobular emphysema is seen in the lung apices with biapical scarring. IMPRESSION: 1. Stable nodule in the left parotid gland. Recommend continued follow-up as indicated. 2. No new masses or fluid collections in the neck. 3. Centrilobular emphysema in the lung apices with biapical scarring. Dictated by: Dictated on workstation # [id number]
== END ==
LOC: RAD 10:56
PROVIDERS: ATTEND Plastic Surgery Plastic Surgery Within the Head and Neck
DX: K11.8 Other diseases of salivary glands (principal); J43.2 Centrilobular emphysema
CPT/HCPCS: 36415; 70491; 82565; 84520